=== PATIENT | male | born 2005 | race Caucasian/White ===

== ENCOUNTER 2025-01-20 16:54 | Emergency (ER) | payer MEDICAID ==
[~2025-01-20] VITALS: Ht 180.3 cm; Wt 59.8 kg
[2025-01-20 16:58] VITALS: TEMP 97.8
--- NOTE | 2025-01-20 17:02 | Physician Documentation ---
History of Present Illness ~ Chief Complaint: Chest Pain Stated Complaint: CHEST PAIN Time Seen by MD: 17:17 HPI 1-year-old male presents to the ED with a complaint of intermittent chest pain sharp in nature x1 day states while laying down this afternoon he noticed with the pain went away. Denies any nausea vomiting shortness of breath diaphoresis. States he does have a history of anxiety. Reports being generally healthy otherwise Allergies: Coded Allergies: Penicillins (Verified Allergy, Unknown, 01/20/25) amoxicillin (Verified Allergy, Unknown, 01/20/25) ketorolac (Verified Allergy, Unknown, 01/20/25) Active Prescriptions See Medication Reconciliation Form. Medication Reconciliation Scheduled Hydroxyzine Hcl* (Atarax*), 1 TAB PO Q12H Review of Systems All Other Systems at this time: Reviewed and Negative ROS As stated above in the HPI, otherwise all systems are reviewed and negative. Physical Exam Vital Signs: Temperature: 97.8, Source: Temporal, Heart Rate: 78, Respiratory Rate: 16, BP: 141/81, Pulse Oximetry: 100, Weight: 59.750 Physical Exam General: Alert, no apparent distress. HEENT: PERRL, EOMI, no injection, moist mucous membranes. Neck: Full range of motion. Respiratory: Lungs clear, no respiratory distress. Chest: No accessory muscle use. Cardiovascular: Regular rate and rhythm, no murmurs. Gastrointestinal: Soft, nontender, nondistended. Bowels sounds present. Extremities: Normal range of motion, no deformity. Neurologic: Oriented x4. Psychiatric: Normal mood and affect. Skin: Normal color, warm and dry. No edema, no ecchymosis. 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 It has been has been history of anxiety he does not currently having any chest pain see any reason to pursue further imaging. I am going to prescribe him hydroxyzine to help with sleep and anxiety Differential Dx:Considerations: Include: Chest wall contusion, Flail chest, Myocardial contusion, Pneumothorax, Pulmonary contusion, Rib fracture, Renal contusion, Splenic fracture, Tension pneumothorax, Other Departure Disposition: 01 HOME / SELF CARE / HOMELESS Impression: Primary Impression: Chest pain Condition: Stable Discharge Instructions: Managing Anxiety, Adult, Nonspecific Chest Pain, Adult Referrals: NO PRIMARY CARE PROVIDER (PCP) Prescriptions Hydroxyzine Hcl* (Atarax*) 25 Mg Tablet 1 TAB PO Q12H for anxiety for 30 Days, #60 TAB Prov: AGUILAR FALL ELECTRICAL ASSEMBLY SUPERVISOR 01/20/25 Education Educated: Patient Educated regarding: diagnosis Signature Scribe Signature: Attestation: Scribed for Aguilar Fall [employer]illing Machine Operator by Aguilar Hill NP . 01/20/25 22:43 AGUILAR FALL [employer]LECTRICAL ASSEMBLY SUPERVISOR Jan 20, 2025 17:02
--- NOTE | 2025-01-20 17:05 | ELECTROCARDIOGRAPH REPORT ---
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
[2025-01-20 17:18] VITALS: BP 154/84; PULSE 83; RESP 16; O2SAT 99
[2025-01-20] MEDS ORDERED: HYDR-3686 PO (17:24)
== END 2025-01-20 17:27 | disposition home or self-care (01) ==
LOC: ER 16:55
DX: R07.89 Other chest pain (principal); F41.9 Anxiety disorder, unspecified; Z88.0 Allergy status to penicillin; Z88.1 Allergy status to other antibiotic agents; Z88.8 Allergy status to other drugs, medicaments and biological substances; Z79.899 Other long term (current) drug therapy
CPT/HCPCS: 93005; 99283